=== PATIENT | female | born 1995 | race Caucasian/White ===

== ENCOUNTER → 2019-06-04 | Outpatient (CLI) | payer BC, OTHER ==
--- NOTE | 2019-06-04 12:14 | US ---
EXAMINATION TYPE: US abdomen complete DATE OF EXAM: 06/04/2019 COMPARISON: CT CLINICAL HISTORY: R10.13 epigastric pain, R12 Heartburn,R11.0 nausea. Pt states nausea post prandial, occasional ABD pain EXAM MEASUREMENTS: Liver Length: 14.2 cm Gallbladder Wall: 0.2 cm CBD: 0.3 cm Spleen: 10.0 cm Right Kidney: 9.9 x 4.1 x 4.3 cm Left Kidney: 10.0 x 5.9 x 4.8 cm Pt very gassy, difficult to scan Pancreas: wnl, head obscured by overlying bowel gas Liver: wnl Gallbladder: wnl Evidence for sonographic Coffman's sign: No CBD: wnl Spleen: wnl Right Kidney: wnl Left Kidney: Appeared wnl, difficult to visualize due to overlying bowel gas Upper IVC: wnl Abd Aorta: wnl The liver is homogenous. The intrahepatic portion of the IVC and proximal abdominal aorta are within normal limits. There is no evidence of cholelithiasis. Common bile duct is unremarkable. The visu alized portions of the pancreas are homogenous. The spleen is unremarkable. Kidneys are symmetric a nd free of hydronephrosis. No renal lesions are seen. IMPRESSION: Sonographic evidence of cholelithiasis nor acute cholecystitis. Liver appears homogeneous . Overall unremarkable abdominal ultrasound other than partial obscuration of the pancreas and left k idney.
== END | disposition home or self-care (01) ==
LOC: RADUSWWP 06:38
PROVIDERS: ATTEND Family Medicine
DX: R10.13 Epigastric pain (principal); R11.0 Nausea
CPT/HCPCS: 76700

== ENCOUNTER 2019-07-14 17:44 | Emergency (ER) | payer BC, OTHER ==
--- NOTE | 2019-07-14 19:04 | US ---
EXAMINATION TYPE: US venous doppler duplex LE RT DATE OF EXAM: 07/14/2019 6:37 PM COMPARISON: NONE CLINICAL HISTORY: Calf tenderness. SIDE PERFORMED: Right TECHNIQUE: The lower extremity deep venous system is examined utilizing real time linear array sonog gay with graded compression, doppler sonography and color-flow sonography. VESSELS IMAGED: External Iliac Vein (EIV) Common Femoral Vein Deep Femoral Vein Greater Saphenous Vein * Femoral Vein Popliteal Vein Small Saphenous Vein * Proximal Calf Veins (* superficial vessels) Right Leg: Negative for DVT Impression No evidence of deep venous thrombosis in the right leg. .
--- NOTE | 2019-07-14 19:42 | ED ---
General Adult HPI - General Chief complaint: Extremity Injury, Lower Stated complaint: Random bruising on legs Time Seen by Provider: 07/14/19 17:59 Source: patient Mode of arrival: ambulatory Limitations: no limitations - History of Present Illness Initial comments: Patient is a 24-year-old female with no significant past medical history is presenting to emergency Department with a chief complaint of low bruising. Patient reports yesterday she was at another ED with left lower extremity bruising. Patient had an ultrasound performed and a DVT was ruled out. Patient was diagnosed with phlebitis. Patient was given Xeralto. Patient has not begun taking medication yet. Patient reports that she developed some tingling in the left lower extremity as well as bruising in similar fashion on the right lower extremity. Patient reports the bruising in the right lower extremities located along the lateral aspect of the right lower leg. Patient does report some tenderness at the site of ecchymosis. Patient denies any blood clotting disorders but does report a family history of DVTs. Patient was told to avoid taking her control medications.. Patient denies shortness of breath cough or chest pain. - Related Data Home Medications Medication Instructions Recorded Confirmed Ibuprofen [Motrin] 600 mg PO Q6H PRN 09/06/16 09/06/16 Previous Rx's Medication Instructions Recorded Ciprofloxacin HCl [Cipro] 500 mg PO Q12HR #14 tablet 09/06/16 Allergies Allergy/AdvReac Type Severity Reaction Status Date / Time No Known Allergies Allergy Verified 07/14/19 17:46 Review of Systems ROS Statement: Those systems with pertinent positive or pertinent negative responses have been documented in the HPI. ROS Other: All systems not noted in ROS Statement are negative. Past Medical History Additional Past Medical History / Comment(s): fainting spells History of Any Multi-Drug Resistant Organisms: None Reported Past Surgical History: Orthopedic Surgery Additional Past Surgical History / Comment(s): left meniscus repair Past Psychological History: No Psychological Hx Reported Smoking Status: Never smoker Past Alcohol Use History: None Reported Past Drug Use History: None Reported General Exam Limitations: no limitations General appearance: alert, in no apparent distress Head exam: Present: atraumatic, normocephalic, normal inspection Eye exam: Present: normal appearance Pupils: Present: normal accommodation ENT exam: Present: normal exam, normal oropharynx, mucous membranes moist, TM's normal bilaterally, normal external ear exam Neck exam: Present: normal inspection, full ROM Respiratory exam: Present: normal lung sounds bilaterally. Absent: respiratory distress, wheezes, rales Cardiovascular Exam: Present: regular rate, normal rhythm, normal heart sounds Extremities exam: Present: normal inspection (Ecchymosis along the lateral aspect of the left upper leg. Ecchymosis in the right lower leg in a streaking pattern.), full ROM, tenderness (Mild tenderness at the region of ecchymosis.) Back exam: Present: normal inspection, full ROM Neurological exam: Present: alert, oriented X3 Psychiatric exam: Present: normal affect, normal mood Skin exam: Present: warm, intact, normal color Course Vital Signs 07/14/19 07/14/19 17:46 19:50 Temperature 98.6 F 98 F Pulse Rate 78 85 Respiratory 16 18 Rate Blood Pressure 112/76 100/65 O2 Sat by Pulse 98 97 Oximetry Medical Decision Making - Medical Decision Making Patient is a 24-year-old female presenting to the emergency department with chief complaint of right leg bruising. The bruising appears to be in a streaking pattern along the lateral aspect of right lower leg. She does have a positive Homans. Ultrasound right lower extremity is negative for a DVT. I suspect the patient to be developing tonsillitis in the right lower extremity as well. The numbness and tingling on the left lower extremity appears to be secondary to determine phlebitis that started occurring 2 days ago. Patient advised to begin taking her blood thinner medication tonight. She has no shortness of breath, chest pain or cough at this time. Rest of examination is unremarkable. Patient advised to apply warm compresses in the regions of ecchymosis. Patient reports she has an appointment scheduled with a vascular surgeon next week. Strict return parameters were thoroughly discussed with patient was upsetting agreeable. Case discussed physician.. Disposition Clinical Impression: Thrombophlebitis of right lower extremity Disposition: HOME SELF-CARE Condition: Stable Instructions (If sedation given, give patient instructions): Superficial Thrombophlebitis (ED) Additional Instructions: Please take the Xeralto as prescribed. Please follow up with a vascular s urgeon. Please return to emergency department if symptoms worsen. Is patient prescribed a controlled substance at d/c from ED?: No Referrals: Natalie Fournier MD [Primary Care Provider] - 1-2 days Time of Disposition: 19:42
[2019-07-14 19:51] VITALS: BP 100/65; PULSE 85; RESP 18; TEMP 98
== END 2019-07-14 19:51 | disposition home or self-care (01) ==
LOC: EC 17:44
DX: I80.01 Phlebitis and thrombophlebitis of superficial vessels of right lower extremity (principal); S80.12XA Contusion of left lower leg, initial encounter; S80.11XA Contusion of right lower leg, initial encounter; X58.XXXA Exposure to other specified factors, initial encounter
CPT/HCPCS: 99283

== ENCOUNTER 2019-07-22 10:01 | Day surgery (SDC) | payer BC, OTHER ==
[2019-07-17 12:20] VITALS: BMI 18.6
[~2019-07-22 10:01] MED LIST: LACTATED RINGERS 1,000 ML IV SCH; LIDOCAINE 1% 20 ML VIAL (10MG/ML) FOR IV START INTRADERMA PRN
[2019-07-22] MEDS ORDERED: LACTATED RINGERS 1,000 ML IV ONE (10:17)
[2019-07-22 10:35] VITALS: TEMP 98.6
[2019-07-22] MEDS ORDERED: PROPOFOL 10 MG/ML 20 ML VIAL IV ONE (11:27)
[2019-07-22] MEDS ORDERED: LIDOCAINE 1% INJ 10MG/ML (20 ML MDV) ONE (11:27)
--- NOTE | 2019-07-22 11:51 | P.PCN ---
Date of Procedure: 07/22/19 Description of Procedure: BRIEF HISTORY: Patient is a 24-year-old, pleasant, female who presents for outpatient EGD for evaluation of epigastric abdominal pain. Patient reports symptoms of epigastric abdominal pain, bloating and distention which is refractory to PPI therapy. PROCEDURE PERFORMED: Esophagogastroduodenoscopy with biopsy. PREOPERATIVE DIAGNOSIS: Epigastric abdominal pain. ESTIMATED BLOOD LOSS: Minimal. IV sedation per anesthesia. PROCEDURE: After informed consent was obtained, the patient was brought into the endoscopy unit. IV sedation was administered by Anesthesia under continuous monitoring. Initially the Olympus GIF-190 video endoscope was inserted into the mouth. Esophagus intubated without any difficulty. It was gradually advanced into the stomach and duodenum and carefully examined. The bulb and the second part of the duodenum appeared normal, with biopsies taken to rule out celiac sprue. The scope at this time was withdrawn to the stomach, adequately insufflated with air, and upon careful examination, mucosa of the antrum, body, cardia and the fundus appeared normal except for some mild scattered erythema in the antrum and body suggestive of mild gastritis with biopsies taken. The scope was then withdrawn into the esophagus. The GE junction was located at 41 cm from the incisors. The esophagus appeared normal. There were no erosions or ulcerations seen and the patient tolerated the procedure well. IMPRESSION: 1. Mild gastritis antrum and body, biopsied. 2. Duodenal biopsies. RECOMMENDATIONS: The findings of this examination were discussed with the patient and her mother. Okay to resume diet. Okay to resume medications. Await pathology from biopsies.
[2019-07-22 11:53] VITALS: RESP 16
[2019-07-22 12:08] VITALS: PULSE 77
[2019-07-22 12:14] VITALS: BP 105/73
== END 2019-07-22 12:28 | disposition home or self-care (01) ==
LOC: ORWHC2ENDO 10:01
PROVIDERS: ATTEND Internal Medicine
DX: K29.50 Unspecified chronic gastritis without bleeding (principal); K21.9 Gastro-esophageal reflux disease without esophagitis; Z79.82 Long term (current) use of aspirin; Z79.899 Other long term (current) drug therapy; Z98.890 Other specified postprocedural states
CPT/HCPCS: 81025; 88305; 43239; J2001; J2704

== ENCOUNTER 2020-06-30 05:35 | Emergency (ER) | payer BC, OTHER ==
--- NOTE | 2020-06-30 05:53 | ED ---
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 Patient presents the ER today with complaint of fevers, chills, body aches, sore throat, runny nose and cough. Patient's concerned she may have COVID. - Related Data Home Medications Medication Instructions Recorded Confirmed Aspirin [Adult Low Dose Aspirin EC] 81 mg PO DAILY 07/17/19 07/17/19 Escitalopram [Lexapro] 5 mg PO HS 07/17/19 07/17/19 Multivitamins, Thera [Multivitamin 1 tab PO DAILY 07/17/19 07/17/19 (formulary)] Omeprazole [PriLOSEC] 40 mg PO QAM 07/17/19 07/17/19 Previous Rx's Medication Instructions Recorded Ondansetron [Zofran ODT] 4 mg PO Q8HR #12 tab 06/30/20 Allergies Allergy/AdvReac Type Severity Reaction Status Date / Time No Known Allergies Allergy Verified 06/30/20 05:42 Review of Systems ROS Statement: Those systems with pertinent positive or pertinent negative responses have been documented in the HPI. ROS Other: All systems not noted in ROS Statement are negative. Past Medical History Past Medical History: No Reported History Additional Past Medical History / Comment(s): fainting spells, IBS History of Any Multi-Drug Resistant Organisms: None Reported Past Surgical History: Orthopedic Surgery Additional Past Surgical History / Comment(s): left meniscus repair Past Anesthesia/Blood Transfusion Reactions: No Reported Reaction Past Psychological History: No Psychological Hx Reported Smoking Status: Never smoker Past Alcohol Use History: None Reported Past Drug Use History: None Reported - Past Family History Mother Family Medical History: Deep Vein Thrombosis (DVT) General Exam - General Exam Comments Initial Comments: Physical Exam GENERAL: Patient is well-developed and well-nourished. Patient is nontoxic and well-hydrated and is in no distress. HENT: Normocephalic, Atraumatic. EYES: PERRL, EOMI PULMONARY: Unlabored respirations. No audible rales rhonchi or wheezing was noted. CARDIOVASCULAR: There is a regular rate and rhythm without any murmurs gallops or rubs. ABDOMEN: Soft and nontender with normal bowel sounds. SKIN: Skin is clear with no lesions or rashes and otherwise unremarkable. : Deferred NEUROLOGIC: Patient is alert and oriented x3. Moving all extremities spontaneously MUSCULOSKELETAL: Normal extremities with adequate strength and full range of motion. No lower extremity swelling or edema. No calf tenderness. PSYCHIATRIC: Normal psychiatric evaluation. Limitations: no limitations Course Vital Signs 06/30/20 05:40 Temperature 99.1 F Pulse Rate 87 Respiratory 18 Rate Blood Pressure 119/71 O2 Sat by Pulse 97 Oximetry Medical Decision Making - Medical Decision Making The patient was seen and evaluated, history was obtained from the patient Signs reviewed, patient is not hypoxic or tachycardic 25-year-old female with presumed COVID 19 will be tested for COVID 19 as well as influenza Chest x-ray ordered and resulted with no acute findings Patient was discharged home, advised to treat symptomatically with hydration, alternating Tylenol and Motrin for body aches or fever, advised to buy a pulse oximeter and return to the ER for any shortness of breath or pulse oximeter reading less than 90% Patient was given a work note stating that she cannot return to work until she has a negative COVID 19 test Asians expressed understanding and agreement with the plan for discharge. Patient discharged home in stable condition. Disposition Clinical Impression: Exposure to COVID-19 virus Disposition: HOME SELF-CARE Condition: Stable Prescriptions: Ondansetron [Zofran ODT] 4 mg PO Q8HR #12 tab Is patient prescribed a controlled substance at d/c from ED?: No Referrals: Natalie Fournier MD [Primary Care Provider] - 1-2 days
--- NOTE | 2020-06-30 06:48 | XR ---
EXAM: XR Chest, 2 Views CLINICAL HISTORY: cough TECHNIQUE: Frontal and lateral views of the chest. COMPARISON: No relevant prior studies available. FINDINGS: Lungs: Unremarkable. No consolidation. Pleural space: Unremarkable. No pneumothorax. Heart: Unremarkable. No cardiomegaly. Mediastinum: Unremarkable. Bones/joints: Unremarkable. IMPRESSION: Normal chest x-rays.
[2020-06-30 07:20] VITALS: BP 120/73; PULSE 80; RESP 17; TEMP 99
== END 2020-06-30 07:20 | disposition home or self-care (01) ==
LOC: EC 05:35
DX: U07.1 COVID-19 (principal); Z79.82 Long term (current) use of aspirin; Z79.899 Other long term (current) drug therapy
CPT/HCPCS: 87502; 71046; 99283; U0003

== ENCOUNTER → 2020-07-13 | Outpatient (CLI) | payer BC, OTHER | END | disposition home or self-care (01) | LOC: LABWHC1 09:16 | PROVIDERS: ATTEND Pediatrics | DX: Z20.828 Contact with and (suspected) exposure to other viral communicable diseases (principal) | CPT/HCPCS: U0003; C9803 ==

== ENCOUNTER → 2020-10-09 | Outpatient (CLI) | payer BC, OTHER ==
--- NOTE | 2020-10-11 17:23 | MR ---
EXAMINATION TYPE: MR iac wo/w con DATE OF EXAM: 10/09/2020 COMPARISON: NONE HISTORY: 25-year-old female Vertigo, migraine TECHNIQUE: Multiplanar, multisequence images of the brain and brainstem were acquired before and aft er administration of 6.5 mL IV Gadavist. Diffusion weighted imaging was performed. Additional coned -down sequences through the internal auditory canals and posterior cranial fossa before and after IV contrast administration. FINDINGS: Diffusion weighted images demonstrate no evidence of an acute ischemic lesion in the brain. T2/FLAIR weighted sequences show no white matter signal abnormality. Midline structures demonstrate normal morphology. In assessment of the craniocervical junction, there is 4 mm of right-sided cerebellar tonsillar ectopia and 3 mm on the left. Brain volume again is age appropriate. The ventricles are of normal caliber. There is no evidence of an acute intracranial hemorrhage, infarct, mass, mass-effect or an extra-axia l fluid collection. There is no cerebellopontine angle mass. The internal auditory canals are otherwise symmetric. Brainstem and skull base abnormalities are not seen. Post contrast images demonstrate no evidence of pathologic enhancement in the posterior cranial fossa or the internal auditory canals. There is no abnormal enhancement of the labyrinths. Mild mucosal thickening ethmoid air cells and sphenoid sinuses. There is some frothy air-fluid level in the left sphenoid sinus. Globes are intact. IMPRESSION: 1. Incidental 4 mm of cerebellar tonsillar ectopia on the right and 3 mm on the left. No dakota tonsil lar beaking Findings suggest benign cerebellar tonsillar ectopia rather than Chiari I malformation. O therwise, no intracranial abnormality seen. 2. Unremarkable acoustic MRI. 3. Mild chronic ethmoid and sphenoid sinus disease but with some frothy air-fluid level in the left s phenoid sinus which can be seen with acute sinusitis. Clinically correlate.
== END | disposition home or self-care (01) ==
LOC: RADMRIMAIN 06:39
PROVIDERS: ATTEND Otolaryngology
DX: R42 Dizziness and giddiness (principal); G43.909 Migraine, unspecified, not intractable, without status migrainosus
CPT/HCPCS: 70553; A9585

== ENCOUNTER → 2020-11-14 | Outpatient (CLI) | payer BC, OTHER ==
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
== END | disposition home or self-care (01) ==
LOC: RADMRIMAIN 07:52
PROVIDERS: ATTEND Psychiatry & Neurology Neurology
DX: R51.9 Headache, unspecified (principal)
CPT/HCPCS: 70553; A9585

== ENCOUNTER → 2021-06-03 | Outpatient (CLI) | payer BC, OTHER ==
--- NOTE | 2021-06-03 09:25 | XR ---
EXAMINATION TYPE: XR abdomen 2V DATE OF EXAM: 06/03/2021 COMPARISON: NONE HISTORY: Pain and palpable abnormality TECHNIQUE: Two view abdominal series FINDINGS: The osseous structures are intact. The bowel gas pattern is nonspecific. Lung bases are clear. Stacey ined fecal debris throughout the colon. IMPRESSION: 1. Nonspecific abdomen. Correlate for constipation.
== END | disposition home or self-care (01) ==
LOC: RADXRMAIN 07:38
PROVIDERS: ATTEND Physician Assistant Medical
DX: R10.9 Unspecified abdominal pain (principal)
CPT/HCPCS: 74019

== ENCOUNTER → 2021-06-29 | Outpatient (CLI) | payer BC, OTHER ==
--- NOTE | 2021-06-29 10:18 | XR ---
EXAMINATION TYPE: XR chest 2V DATE OF EXAM: 06/29/2021 COMPARISON: 06/30/2020 TECHNIQUE: PA and lateral views submitted. HISTORY: Shortness of breath FINDINGS: The lungs are clear and there is no pneumothorax, pleural effusion, or focal pneumonia. Hyperinflat ion suggests COPD. No overt failure. Hypertrophic and degenerative changes of the spine. No interstit ial edema. Heart size normal. IMPRESSION: 1. No acute process.
== END | disposition home or self-care (01) ==
LOC: RADXRMAIN 08:00
PROVIDERS: ATTEND Physician Assistant Medical
DX: R06.02 Shortness of breath (principal)
CPT/HCPCS: 71046

== ENCOUNTER → 2021-07-07 | Outpatient (CLI) | payer BC, OTHER ==
--- NOTE | 2021-07-07 16:06 | US ---
EXAMINATION TYPE: US abdomen complete DATE OF EXAM: 07/07/2021 COMPARISON: NONE CLINICAL HISTORY: R10.10 Upper abd pain, R10.13 epigastric pain. Constipation and left sided abd pain that is ongoing for 2 years EXAM MEASUREMENTS: Liver Length: 15.4 cm Gallbladder Wall: 0.2 cm CBD: 0.4 cm Spleen: 10.1 cm Right Kidney: 9.7 x 4.1 x 4.0 cm Left Kidney: 11.0 x 4.1 x 5.1 cm Pancreas: wnl Liver: intercostal imaging due to bowel gas Gallbladder: wnl Evidence for sonographic Coffman's sign: no CBD: wnl Spleen: wnl Right Kidney: wnl Left Kidney: wnl Upper IVC: wnl Abd Aorta: wnl IMPRESSION: 1. Normal abdomen ultrasound.
== END | disposition home or self-care (01) ==
LOC: RADUSWWP 07:02
PROVIDERS: ATTEND Family Medicine
DX: R10.10 Upper abdominal pain, unspecified (principal); R10.13 Epigastric pain
CPT/HCPCS: 76700

== ENCOUNTER → 2023-11-30 | Outpatient (CLI) | payer BC, OTHER ==
--- NOTE | 2023-12-01 10:40 | MR ---
EXAMINATION TYPE: MR cspine/lspine wo con DATE OF EXAM: 11/30/2023 8:50 AM CLINICAL INDICATION:Female, 28 years old with history of M54.50 low back pain; PHH, Back Injury-Pain in lower back that travels down both thighs and onto Rt Calf x2 months/ Neck pain for many years COMPARISON: TECHNIQUE: Multi planar, multi sequence MRI of the cervical and lumbar spine. MR contrast: IV Contrast: cc , None. FINDINGS CERVICAL: Craniocervical junction is intact. No cerebellar tonsillar ectopia. There is a mildly retroflexed den s which mildly narrows the anterior CSF space without abutting the cord. Cervical cord is normal in c ourse caliber and signal. No pathologic intracanalicular process is seen. Vertebral body heights and alignment are maintained. Marrow signal is normal throughout. There is no evidence of focal T1 dark lesion or marrow edema. There is mild disc desiccation at the upper cervica l levels. C2-C3: No significant disc pathology. The spinal canal is patent. No neural foraminal stenosis. C3-C4: No significant disc pathology. The spinal canal is patent. No neural foraminal stenosis. C4-C5: Minor posterior disc bulging. Spinal canal is patent. No neural foraminal stenosis. C5-C6: Minor posterior disc bulging. The spinal canal is patent. No neural foraminal stenosis. C6-C7: Minor posterior disc bulging. Spinal canal is patent. No neural foraminal stenosis. C7-T1: Mild broad-based posterior disc bulge mildly narrows the spinal canal and anterior CSF space w ithout abutting or displacing the cord. No neural foraminal stenosis. Other: Included paraspinous soft tissues show no abnormality in the cervical region. Partially seen o n sagittal imaging is T2 hyperintense and T1 hypointense signal at the skull base which seems likely to represent fluid and/or mucosal disease in the sphenoid sinus. IMPRESSION: 1. Minimal cervical spine degenerative changes, as detailed above. No significant spinal canal or ne ural foraminal narrowing. 2. No cord compression or signal abnormality. FINDINGS LUMBAR: 5 lumbar type vertebral bodies are presumed for communication purposes. Vertebral body heights, align ment, and signal appear within normal limits. Disc spacing and signal is normal, except for mild disc desiccation at the L4-L5 level, and there is a small high signal intensity zone at the posterior mar gin of this disc suggesting annular tear. There is no evidence of marrow edema or focal suspicious T1 dark bony lesion. The conus medullaris descends normally to the mid T12 level, no evidence of conus enlargement or sign al abnormality. No pathologic fluid collection is seen. T12-L1: No significant disc pathology. No evidence of significant spinal canal stenosis or neural for aminal stenosis. L1-L2: No significant disc pathology. No evidence of significant spinal canal stenosis or neural fora yue stenosis. L2-L3: No significant disc pathology. Mild bilateral facet arthrosis. Spinal canal and neuroforamen a re patent. L3-L4: No significant disc pathology. Mild/moderate bilateral facet arthrosis with ligamentum flavum thickening. Spinal canal and right neuroforamen are patent. Mild left neuroforaminal stenosis. L4-L5: Circumferential posterior disc bulging. Moderate bilateral facet arthropathy. Mild/moderate sp inal canal stenosis and left neural foraminal stenosis. L5-S1: The disc appears somewhat hypoplastic without significant pathology demonstrated. No significa nt spinal canal stenosis. Mild facet arthrosis. No significant neural foraminal stenosis. Other findings: Visualized paraspinous soft tissues show no significant abnormality. IMPRESSION: 1. Mild lumbar spine degenerative changes, mostly L4-L5, where there is [id number] spinal thania l stenosis and left neural foraminal stenosis 2. No compression fracture or cord/conus compression.
== END | disposition home or self-care (01) ==
LOC: RADMRIMAIN 07:43
PROVIDERS: ATTEND Family Medicine
DX: M47.22 Other spondylosis with radiculopathy, cervical region (principal); M47.26 Other spondylosis with radiculopathy, lumbar region; M48.061 Spinal stenosis, lumbar region without neurogenic claudication; M99.73 Connective tissue and disc stenosis of intervertebral foramina of lumbar region
CPT/HCPCS: 72141; 72148

== ENCOUNTER → 2023-12-20 | Outpatient (CLI) | payer BC ==
--- NOTE | 2023-12-21 12:26 | US ---
EXAMINATION TYPE: US carotid duplex BILAT DATE OF EXAM: 12/20/2023 COMPARISON: NONE CLINICAL INDICATION: Female, 28 years old with history of R20.2 PARESTHESIA OF SKIN; paresthesia TECHNIQUE: Carotid duplex ultrasound examination. Indirect Doppler criteria was utilized. FINDINGS: EXAM MEASUREMENTS: RIGHT: Peak Systolic Velocity (PSV) cm/sec ----- Right CCA: 116 ----- Right ICA: 104 ----- Right ECA: 82.8 ICA/CCA ratio: .9 RIGHT: End Diastole cm/sec ----- Right CCA: 19.7 ----- Right ICA: 40.2 ----- Right ECA: 13.1 LEFT: Peak Systolic Velocity (PSV) cm/sec ----- Left CCA: 126 ----- Left ICA: 97.2 ----- Left ECA: 82 ICA/CCA ratio: .8 LEFT: End Diastole cm/sec ----- Left CCA: 31.4 ----- Left ICA: 60.8 ----- Left ECA: 16.2 VERTEBRALS (direction of flow): Right Vertebral: Antegrade Left Vertebral: Antegrade Rhythm: Normal ORDER SCHEDULE CLERK NOTES: No significant stenosis seen IMPRESSION: No significant hemodynamic stenosis identified. Criteria for Assigning % of Stenosis / Diameter reduction (Estimation based on the indirect measurements of the internal carotid artery velocities (ICA PSV). 1. Normal (no stenosis)=ICA PSV < 125 cm/s: ratio < 2.0: ICA EDV<40 cm/s. 2. Less than 50% stenosis=ICA PSV < 125 cm/s: ratio < 2.0: ICA EDV<40 cm/s. 3. 50 to 69% stenosis=ICA PSV of 125 to 230 cm/s: ration 2.0 ? 4.0: ICA EDV 40-100 cm/s. 4. Greater than 70% stenosis to near occlusion= ICA PSV > 230 cm/s: ratio > 4.0: ICA EDV > 100 cm/s. 5. Near occlusion= ICA PSV velocities may be low or undetectable: variable ratio and ICA EDV. 6. Total occlusion=unable to detect flow.
--- NOTE | 2023-12-22 09:37 | MR ---
EXAMINATION TYPE: MR brain wo con DATE OF EXAM: 12/20/2023 8:33 AM CLINICAL INDICATION:Female, 28 years old with history of R20.2 PARESTHESIA OF SKIN, Tingling and pain in arms. COMPARISON: 11/14/2020. TECHNIQUE: Multi planar, multi sequence imaging was performed through the brain including: T1, T2, In version recovery, Diffusion weighted imaging, and gradient echo imaging. No gadolinium was given. FINDINGS: The cortes-white junctions, ventricular system, basal cisterns appear unremarkable. Midline structures show no abnormality. Diffusion-weighted imaging shows no evidence of restricted diffusion. The suscep tibility weighted images do not reveal any evidence for micro-hemorrhage. The bone marrow signal is within normal limits. Paranasal sinuses and mastoid air cells: No significant paranasal sinus disease. Visualized orbits: Orbital contents are intact. IMPRESSION: No evidence of intracranial mass or acute/subacute infarct.
== END | disposition home or self-care (01) ==
LOC: RADUSWWP 07:05
PROVIDERS: ATTEND Family Medicine
DX: R20.2 Paresthesia of skin (principal)
CPT/HCPCS: 70551; 93880